=== PATIENT | male | born 1965 | race Asian ===

== ENCOUNTER → 2022-10-07 | Outpatient (CLI) | payer OTHER ==
[~2022-10-07] MED LIST: NAPR-1025 PO; PROM6.2514 PO; RINGERS SOLUTION,LACTATED 1,000 ML IV ONE; SODIUM CHLORIDE 0.9% 1,000 ML IV ONE; SODIUM CHLORIDE 0.9% 1,000 ML ONE
== END | disposition still patient (30) ==
LOC: EDSTATUS 09-23 16:00 → RADMN 12:30
DX: E04.1 Nontoxic single thyroid nodule (principal)
CPT/HCPCS: 10005; 10022; 88173; 88305; J7030